=== PATIENT | male | born 1985 | race Two or more races ===

== ENCOUNTER 2021-05-21 23:11 | Emergency (ER) | payer OTHER ==
[~2021-05-21] VITALS: Ht 175.3 cm; Wt 74.8 kg
[2021-05-22] MEDS ORDERED: VALACYCLOVIR500 MG PO (00:11)
[2021-05-22] MEDS ORDERED: EYE ALLERGY REL15 M1 OP (04:52)
[2021-05-22] MEDS ORDERED: REFRESH TEARS15 ML OP (04:52)
== END 2021-05-22 06:33 | disposition home or self-care (01) ==
LOC: ER 23:11
DX: H57.12 Ocular pain, left eye (principal)